=== PATIENT | female | born 1990 | race Caucasian/White ===

== ENCOUNTER 2023-06-13 14:36 | Emergency (ER) | payer SELFPAY ==
[~2023-06-13] VITALS: Ht 172.7 cm; Wt 74.4 kg
[2023-06-13] MEDS ORDERED: TRAMADOL HCL 50 MG TABLET ONE (15:11)
[2023-06-13] MEDS ORDERED: KETOROLAC TROMETHAMINE INJ 30 MG/ML VIAL ONE (15:11)
[2023-06-13] MEDS: KETOROLAC TROMETHAMINE INJ 30 MG/ML VIAL IM ONE (15:19)
[2023-06-13] MEDS: TRAMADOL HCL 50 MG TABLET PO ONE (15:20)
[2023-06-13] MEDS ORDERED: KETO10TA2 PO (15:50)
[2023-06-13] MEDS ORDERED: TRAM-351 PO (15:50)
[2023-06-13 16:10] VITALS: BP 118/78; TEMP 98.2; O2SAT 99
== END 2023-06-13 16:19 | disposition home or self-care (01) ==
LOC: ER 14:39
DX: S53.402A Unspecified sprain of left elbow, initial encounter (principal); Z60.2 Problems related to living alone; V89.2XXA Person injured in unspecified motor-vehicle accident, traffic, initial encounter; Y93.89 Activity, other specified; Y92.89 Other specified places as the place of occurrence of the external cause; Y99.8 Other external cause status
CPT/HCPCS: 99284; 96372; 72110; 73080; J1885